=== PATIENT | female | born 1935 | race Two or more races ===

== ENCOUNTER 2018-12-18 12:51 | Outpatient (CLI) | payer OTHER | END 2018-12-18 13:00 | disposition home or self-care (01) | LOC: NUCLEAR 12:51 | DX: M81.0 Age-related osteoporosis without current pathological fracture (principal) ==

== ENCOUNTER 2019-06-08 12:26 | Outpatient (CLI) | payer OTHER | END 2019-06-08 12:29 | disposition home or self-care (01) | LOC: RAD 12:26 | DX: M79.641 Pain in right hand (principal); M25.531 Pain in right wrist ==

== ENCOUNTER 2019-07-07 07:50 | Outpatient (CLI) | payer OTHER | END 2019-07-07 07:55 | disposition home or self-care (01) | LOC: SONOGRAMA 07:50 | DX: E21.2 Other hyperparathyroidism (principal); E04.2 Nontoxic multinodular goiter ==

== ENCOUNTER 2019-10-02 08:54 | Emergency (ER) | payer OTHER ==
[~2019-10-02] VITALS: Ht 160 cm; Wt 67.6 kg
== END 2019-10-02 11:18 | disposition home or self-care (01) ==
LOC: ER 08:54
DX: S60.476A Other superficial bite of right little finger, initial encounter (principal); W54.0XXA Bitten by dog, initial encounter; Y93.89 Activity, other specified; Y92.89 Other specified places as the place of occurrence of the external cause; Y99.8 Other external cause status

== ENCOUNTER 2020-02-16 01:53 | Emergency (ER) | payer OTHER ==
[~2020-02-16] VITALS: Ht 160 cm; Wt 61.2 kg
== END 2020-02-16 06:50 | disposition home or self-care (01) ==
LOC: ER 01:53 → EDBD 01:55 → ER 06:50
DX: I16.0 Hypertensive urgency (principal); I10 Essential (primary) hypertension

== ENCOUNTER 2020-08-10 06:42 | Outpatient (CLI) | payer OTHER | END 2020-08-10 06:48 | disposition home or self-care (01) | LOC: LAB 06:42 | PROVIDERS: ATTEND Internal Medicine Cardiovascular Disease | DX: I10 Essential (primary) hypertension (principal); I42.8 Other cardiomyopathies ==

== ENCOUNTER 2020-12-06 09:36 | Outpatient (CLI) | payer OTHER | END 2020-12-06 09:46 | disposition home or self-care (01) | LOC: RAD 09:36 | PROVIDERS: ATTEND Internal Medicine Cardiovascular Disease | DX: J40 Bronchitis, not specified as acute or chronic (principal) ==

== ENCOUNTER → 2020-12-21 07:25 | Outpatient (CLI) | payer OTHER | END | disposition home or self-care (01) | LOC: LAB 07:25 | PROVIDERS: ATTEND Internal Medicine | DX: I10 Essential (primary) hypertension (principal); E78.49 Other hyperlipidemia; Z00.00 Encounter for general adult medical examination without abnormal findings; Z12.11 Encounter for screening for malignant neoplasm of colon; Z11.3 Encounter for screening for infections with a predominantly sexual mode of transmission ==

== ENCOUNTER → 2020-12-22 10:36 | Outpatient (CLI) | payer OTHER | END | disposition home or self-care (01) | LOC: LAB 10:36 | PROVIDERS: ATTEND Internal Medicine | DX: I10 Essential (primary) hypertension (principal); Z11.3 Encounter for screening for infections with a predominantly sexual mode of transmission; E78.49 Other hyperlipidemia; Z00.00 Encounter for general adult medical examination without abnormal findings ==

== ENCOUNTER 2021-12-18 12:15 | Outpatient (CLI) | payer OTHER | END 2021-12-18 12:20 | disposition home or self-care (01) | LOC: NUCLEAR 12:15 | DX: M81.0 Age-related osteoporosis without current pathological fracture (principal) ==